=== PATIENT | male | born 1960 | race Caucasian/White ===

== ENCOUNTER 2018-01-02 10:05 | Emergency (ER) | payer MEDICARE, OTHER ==
[~2018-01-02] VITALS: Ht 175.3 cm; Wt 100.0 kg
[2018-01-02 10:10] VITALS: Ht 175.3 cm; Wt 100.0 kg
[2018-01-02] MEDS ORDERED: TENORMIN25 MG PO (10:15)
[2018-01-02] MEDS ORDERED: HYDROCODONE-APA1 TAB PO (10:16)
[2018-01-02] MEDS ORDERED: OXY IR30 MG PO (10:16)
[2018-01-02] MEDS ORDERED: SEROQUEL100 MG PO (10:17)
[2018-01-02] MEDS ORDERED: ZANAFLEX4 MG PO (10:17)
[2018-01-02] MEDS ORDERED: XANAX1 MG PO (10:17)
[2018-01-02 11:06] LABS: BASOPHILS 0.7 % (0-2); EOSINOPHILS 8.4 % (0-7); HEMATOCRIT 51.2 % (42.0-54.0); HEMOGLOBIN 17.2 g/dL (13.5-17.5); IMMATURE GRANULOCYTES 0.3 % (0-5); MCHC 33.6 g/dL (31.0-37.0); MCV 92.3 fL (80.0-100.0); MEAN PLATELET VOLUME 9.3 fL (7.4-10.4); MONOCYTES 5.9 % (2-11); NEUTROPHILS 62.7 % (40-80); PLATELET COUNT 189 10x3/uL (130-400); RBC 5.55 10x6/uL (4.20-6.10); RDW 14.4 % (11.5-14.5); WBC 7.5 10x3/uL (4.8-10.8)
[2018-01-02 11:25] LABS: ALBUMIN 3.6 g/dL (3.4-5.0); ANION GAP 8.5 mmol/L (8-16); BILIRUBIN - TOTAL 0.64 mg/dL (0.2-1.3); CALCIUM 8.8 mg/dL (8.5-10.1); CARBON DIOXIDE 31.4 mmol/L (21.0-32.0); CREATININE - SERUM 1.4 mg/dL (0.6-1.3); POTASSIUM - SERUM 3.9 mmol/L (3.5-5.1); PROTEIN - SERUM 7.2 g/dL (6.4-8.2)
[2018-01-02] MEDS ORDERED: NORVASC5 MG PO (11:59)
[2018-01-02 12:43] VITALS: BP 174/111
[2018-01-29 10:32] VITALS: Ht 175.3 cm; Wt 100.0 kg
== END 2018-01-02 12:42 | disposition home or self-care (01) ==
LOC: D.ER 10:05
PROVIDERS: Family Medicine
DX: I10 Essential (primary) hypertension (principal); G89.29 Other chronic pain

== ENCOUNTER → 2018-01-04 13:22 | Outpatient (CLI) | payer MEDICARE, OTHER ==
[2018-01-02 10:10] VITALS: BMI 32.5
[~2018-01-04 13:22] MED LIST: ASPIRIN EC81 M1 PO; BACTROBAN NASAL1 GM; DIOVAN40 MG PO; ELIQUIS2.5 MG PO; HYDROCODONE-APA1 TAB PO; LIPITOR10 MG PO; LOTRISONE CREAM45 GM TOPICAL; MOVANTIK25 MG PO; NICORETTE4 M1 PO; NORVASC10 MG PO; NORVASC5 MG PO; OXY IR30 MG PO; PERCOCET 10/3251 TA1 PO; PRAVACHOL20 MG PO; PROAIR HFA8.5 GM INH; SEROQUEL100 MG PO; SPIRIVA18 MCG INH; SYMBICORT 16010.2 GM INH; TENORMIN25 MG; TENORMIN25 MG PO; XANAX1 MG PO; ZANAFLEX4 MG PO
[2018-01-29 10:32] VITALS: BMI 32.6
== END | disposition home or self-care (01) ==
LOC: D.LABREF 13:22
DX: M16.11 Unilateral primary osteoarthritis, right hip (principal); Z11.8 Encounter for screening for other infectious and parasitic diseases

== ENCOUNTER 2018-01-23 10:00 | Inpatient (IN) | payer MEDICARE, OTHER ==
[~2018-01-23] VITALS: Ht 175.3 cm; Wt 100.2 kg
--- NOTE | ~2018-01-23 | OP ---
PATIENT NAME: LATOYA AKINS MEDICAL RECORD: [id number] :62 LOCATION:D.MS [facility]2239 ADMISSION DATE:01/28/18 SURGEON: ZANE BRIDGES MD DATE OF OPERATION: 01/28/2018 PREOPERATIVE DIAGNOSIS: Severe degenerative arthritis, right hip. POSTOPERATIVE DIAGNOSIS: Severe degenerative arthritis, right hip. PROCEDURE: Right total hip arthroplasty. SURGEON: Zane Bridges MD ANESTHESIA: General. INTRAOPERATIVE COMPLICATIONS: None. SUMMARY OF PATHOLOGIC FINDINGS: Severe degenerative arthritis of the hip with substantial morphic changes. IMPLANTS USED: Trident X3 polyethylene cup, 36 alpha code E Tritanium hemispherical cluster hole shell, 56 alpha code E Biolox ceramic V40 femoral head, 36-mm outside diameter, -5 Anato, #4 press-fit hip stem. RAILROAD CROSSING PROTECTION MAINTAINER: CARMELINA Perdue OPERATIVE SUMMARY IN DETAIL: After obtaining the appropriate preoperative orthopedic surgery consent as well as anesthetic consultation, evaluation and clearance, the patient was brought to the operating room and placed on the operating table in supine position. After adequate general laryngeal mask airway was administered, the patient was placed in a left lateral decubitus position. All pressure points were well padded to include down leg peroneal pad as well as axillary roll. The patient was held firmly to the operating table using the vacuum pack suction system. Right lower extremity and hip were then prepped and draped in routine sterile fashion. Curvilinear incision was made of the greater trochanter, taken down the level of the IT band and was split in line with the IT band to reveal the inferior aspect of the gluteus medius and minimus, this was reflected anteriorly. The hip capsule was split. This patient had severe erosive arthritis with osteophytes all about the femoral neck as well as circumferentially about the femoral head. Osteophytes were removed with a rongeur. Femoral neck cut was made using the femoral neck cutting guide for the Anato system. Having completed this, attention was turned to the acetabulum. Serial and circumferential labrectomy was then followed by reaming of the acetabulum to a size 55, thus a size 56 mm Press-Fit cup was put in with excellent capture. Polyethylene liner was snapped into place and checked with a Dari. Having completed this, the proximal femur was exposed. Serial and sequential reaming and broaching were done for a size 4. Size 4 Anato stem was put into place. The trial reductions were undertaken. The patient's best fit was with a -5 given the fact that he was so short and so tight, -5 was then tamped with the Hernandez taper and reduced, taken through range of motion and found to be stable in all planes. Intraoperative radiograph showed good position and placement of all components. Having completed this, copious irrigation was followed by reapproximation of gluteus medius and minimus back to the greater trochanter in a transosseous fashion with #5 Ethibond. #2 Ethibond was then used to close the IT band, followed by #1 Vicryl, 2-0 Vicryl and skin osei. OPERATIVE REPORT [id number] LATOYA AKINS Sterile dressings were applied. The patient was awakened and taken to the recovery room in stable condition. All final needle and sponge counts were correct. TRANSINT:[id number] Voice Confirmation ID: [id number] DOCUMENT ID: [id number] CYRUS MAURICIO, ZANE DIAZ at 1516 CC: [id number] DICTATION DATE: 01/28/18 1006 SHIPFITTER HELPER: 01/28/18 1311 ADM IN [facility] [address] [id number]
--- NOTE | ~2018-01-23 | CN ---
PATIENT NAME:LATOYA ARMENDARIZ MEDICAL RECORD: [id number] : 62 LOCATION:D.MS [facility]2239 ADMIT DATE: 01/28/18 ACCOUNT: [id number] CONSULTING PHYSICIAN: BOY NAVAS MD REFERRING PHYSICIAN: ZANE BRIDGES MD DATE OF CONSULTATION: 01/28/2018 Cardiology Consultation DIAGNOSES: 1. Preoperative evaluation of hip surgery. 2. Coronary artery disease. 3. Hypertension. 4. Hyperlipidemia. 5. Chronic obstructive pulmonary disease. 6. Smoking. HISTORY OF PRESENT ILLNESS: Mr. Armendariz presents for hip surgery. He underwent cardiac evaluation at [facility] where he had a cardiac catheterization due to an abnormal ECG. The cardiac catheterization revealed a 70% stenosis of the LAD. He was treated medically. He has been treated medically for this. He is not having any chest pain or chest discomfort compatible with angina. His EKG is with no changes. REVIEW OF SYSTEMS: The patient reports easy bruising but reports no swollen glands. The patient reports no fever, no night sweats, no significant weight gain, no significant weight loss. No significant exercise tolerance. The patient reports no dry eyes, no irritation, no vision change. Patient reports no difficulty hearing and no ear pain. Patient reports no frequent nose bleeds or nose and sinus problems. Patient reports on arm pain on exertion. No shortness of breath while lying down. No history of heart murmur. Patient reports no cough, no wheezing or coughing up blood. Patient reports no abdominal pain, no vomiting. Normal appetite. No diarrhea and not vomiting blood. No nausea and no constipation. Patient reports no incontinence. No difficulty urinating. No hematuria. No increased frequency. Patient reports no muscle aches. No weakness, no arthralgias, no back pain. No swelling of the extremities. Patient reports no abnormal mole, no jaundice, no rashes. Reports no loss of consciousness. No weakness and no numbness. No seizures, dizziness, or headaches. The patient reports no depression, no sleep disturbance, feeling safe in a relationship and no alcohol abuse. Patient reports on fatigue. Reports no runny nose or sinus pressure. No itching, no hives, and no frequent sneezing. PHYSICAL EXAMINATION: GENERAL APPEARANCE: Well-nourished, well-developed, appears stated age. Level of distress, comfortable. PSYCHIATRIC: Mental status, alert, normal affect. Orientation, oriented to time, place and person. EYES: Lids and conjunctiva, noninjected. No discharge, no pallor. ENT: Lips, teeth, gums, normal dentition. Oropharynx, no cyanosis, no pallor. NECK: Carotid arteries, bilateral normal upstroke, no bruits, no thrills. JUGULAR VEINS: No jugular venous pressure or distention. CERVICAL LYMPH NODES: Nontender, nonenlarged. THYROID: Not enlarged. Nontender. No nodules. LUNGS: Respiratory effort, unlabored. CONSULT REPORT [id number] LATOYA ARMENDARIZ CHEST: Normal curvature. No thoracic deformity. No chest wall tenderness. Percussion, resonant. Auscultation, clear. No wheezes, no rales, no rhonchi. CARDIOVASCULAR: Precordial exam, nondisplaced. No heaves or pericardial thrills. Rate and rhythm, regular. Heart sounds, normal S1, normal S2. No S3, no gallop, no rub. Systolic murmur, not heard. Diastolic murmur, not heard. EXTREMITIES: No cyanosis, no edema. Peripheral pulses, full and equal in all extremities, except as noted. No bruits appreciated. ABDOMEN: Soft, nondistended. Normal aorta. No bruit. Nontender. No masses. Liver, nontender, no hepatomegaly. Spleen, nontender, no splenomegaly. MUSCULOSKELETAL: No joint tenderness. No joint swelling. No erythema. NEUROLOGICAL: Normal gait, normal strength, normal tone. SKIN: Warm and dry. OVERALL IMPRESSION: Coronary artery disease, stable, no EKG changes, no anginal symptomatology. Heart rate and blood pressure optimal on his current medications. Proceed with surgery. We will reevaluate coronary artery disease after surgery. TRANSINT:[id number] Voice Confirmation ID: [id number] DOCUMENT ID: [id number] BOY NAVAS MD at 1741 CC: [id number] DICTATION DATE: 01/28/18905 ADVERTISING INTERNSHIP: 01/28/18 1135 DIS IN 01/30/18 [facility] [address] [place] [address]
[~2018-01-23 10:00] MED LIST changes: -ASPIRIN EC81 M1 PO; -BACTROBAN NASAL1 GM; -DIOVAN40 MG PO; -ELIQUIS2.5 MG PO; -LIPITOR10 MG PO; -LOTRISONE CREAM45 GM TOPICAL; -MOVANTIK25 MG PO; -NICORETTE4 M1 PO; -NORVASC10 MG PO; -PERCOCET 10/3251 TA1 PO; -PRAVACHOL20 MG PO; -PROAIR HFA8.5 GM INH; -SPIRIVA18 MCG INH; -SYMBICORT 16010.2 GM INH; -TENORMIN25 MG
[2018-01-23] MEDS ORDERED: PROAIR HFA8.5 GM INH (10:13)
[2018-01-23] MEDS ORDERED: NORVASC10 MG PO (10:14)
[2018-01-23] MEDS ORDERED: ASPIRIN EC81 M1 PO (10:16)
[2018-01-23] MEDS ORDERED: TENORMIN25 MG PO (10:16)
[2018-01-23] MEDS ORDERED: SYMBICORT 16010.2 GM INH (10:17)
[2018-01-23] MEDS ORDERED: LOTRISONE CREAM45 GM TOPICAL (10:17)
[2018-01-23] MEDS ORDERED: MOVANTIK25 MG PO (10:19)
[2018-01-23] MEDS ORDERED: NICORETTE4 M1 PO (10:19)
[2018-01-23] MEDS ORDERED: PRAVACHOL20 MG PO (10:21)
[2018-01-23] MEDS ORDERED: SPIRIVA18 MCG INH (10:22)
[2018-01-23 11:31] LABS: APTT 30.9 SECONDS (22.8-39.4); BASOPHILS 0.3 % (0-2); EOSINOPHILS 4.6 % (0-7); HEMOGLOBIN 17.2 g/dL (13.5-17.5); IMMATURE GRANULOCYTES 0.2 % (0-5); INR 1.02 (0.85-1.17); LYMPHOCYTES 15.3 % (15-50); MCH 31.1 pg (26.0-34.0); MCHC 33.1 g/dL (31.0-37.0); MEAN PLATELET VOLUME 9.2 fL (7.4-10.4); MONOCYTES 8.2 % (2-11); NEUTROPHILS 71.4 % (40-80); PLATELET COUNT 171 10x3/uL (130-400); RBC 5.53 10x6/uL (4.20-6.10); RDW 15.1 % (11.5-14.5); WBC 8.9 10x3/uL (4.8-10.8)
[2018-01-23 11:32] LABS: ANION GAP 12.2 mmol/L (8-16); CALCIUM 9.3 mg/dL (8.5-10.1); CARBON DIOXIDE 30.9 mmol/L (21.0-32.0); CREATININE - SERUM 1.4 mg/dL (0.6-1.3); POTASSIUM - SERUM 4.1 mmol/L (3.5-5.1)
[2018-01-23 11:41] LABS: APPEARANCE HAZY (CLEAR); BILIRUBIN NEGATIVE (NEGATIVE); COLOR DARK YELLOW (YELLOW); GLUCOSE NEGATIVE (NEGATIVE); KETONE NEGATIVE (NEGATIVE); NITRITE NEGATIVE (NEGATIVE); PROTEIN NEGATIVE (NEGATIVE); UROBILINOGEN NORMAL (NORMAL)
[2018-01-28] MEDS ORDERED: TENORMIN25 MG (06:54)
[2018-01-28] MEDS ORDERED: LIPITOR10 MG PO (06:55)
[2018-01-28] MEDS ORDERED: BACTROBAN NASAL1 GM (06:55)
[2018-01-28] MEDS ORDERED: DIOVAN40 MG PO (06:56)
[2018-01-28 06:57] VITALS: BP 113/52; BMI 32.8
[2018-01-28 12:22] VITALS: BP 152/95
[2018-01-28 21:06] VITALS: BP 143/95
[2018-01-29 00:33] VITALS: BP 148/91
[2018-01-29 04:38] VITALS: BP 176/106
[2018-01-29 06:31] LABS: HEMATOCRIT 41.8 % (42.0-54.0); HEMOGLOBIN 13.7 g/dL (13.5-17.5); MCH 30.3 pg (26.0-34.0); MCHC 32.8 g/dL (31.0-37.0); MCV 92.5 fL (80.0-100.0); MEAN PLATELET VOLUME 9.5 fL (7.4-10.4); RBC 4.52 10x6/uL (4.20-6.10); RDW 14.7 % (11.5-14.5); WBC 12.2 10x3/uL (4.8-10.8)
[2018-01-29 08:20] VITALS: BP 117/58
[2018-01-29 10:32] VITALS: Ht 175.3 cm; Wt 100.2 kg
[2018-01-29 13:31] VITALS: BP 92/44
[2018-01-29 15:56] VITALS: BP 99/46
[2018-01-29 21:02] VITALS: BP 101/29
[2018-01-30 04:03] VITALS: BP 124/54
[2018-01-30 06:03] LABS: HEMATOCRIT 34.2 % (42.0-54.0); HEMOGLOBIN 11.1 g/dL (13.5-17.5); MCH 30.1 pg (26.0-34.0); MCHC 32.5 g/dL (31.0-37.0); MCV 92.7 fL (80.0-100.0); MEAN PLATELET VOLUME 9.2 fL (7.4-10.4); RBC 3.69 10x6/uL (4.20-6.10); WBC 9.4 10x3/uL (4.8-10.8)
[2018-01-30 08:33] VITALS: BP 162/101
[2018-01-30] MEDS ORDERED: ELIQUIS2.5 MG PO (09:23)
[2018-01-30] MEDS ORDERED: PERCOCET 10/3251 TA1 PO (09:24)
[2018-01-30 12:01] VITALS: BP 120/72
== END 2018-01-30 12:11 | disposition home or self-care (01) | DRG 470 ==
LOC: D.SDCHOLD 01-28 06:10 → D.MS 01-28 11:17
PROVIDERS: Orthopaedic Surgery
PROC: 0SR90JZ Replacement of Right Hip Joint with Synthetic Substitute, Open Approach (ICD-10-PCS; principal; 2018-01-28 08:30)
DX: M16.11 Unilateral primary osteoarthritis, right hip (principal); M25.751 Osteophyte, right hip; I25.10 Atherosclerotic heart disease of native coronary artery without angina pectoris; I10 Essential (primary) hypertension; E78.5 Hyperlipidemia, unspecified; J44.9 Chronic obstructive pulmonary disease, unspecified; G89.29 Other chronic pain; F17.200 Nicotine dependence, unspecified, uncomplicated

== ENCOUNTER → 2018-02-11 11:47 | Outpatient (CLI) | payer MEDICARE, OTHER ==
[2018-01-29 10:32] VITALS: BMI 32.6
[~2018-02-11 11:47] MED LIST changes: +ASPIRIN EC81 M1 PO; +BACTRIM DS TABL1 TAB PO; +BACTROBAN NASAL1 GM; +DIOVAN40 MG PO; +ELIQUIS2.5 MG PO; +LIPITOR10 MG PO; +LOTRISONE CREAM45 GM TOPICAL; +MOVANTIK25 MG PO; +NICORETTE4 M1 PO; +NORVASC10 MG PO; +PERCOCET 10/3251 TA1 PO; +PRAVACHOL20 MG PO; +PROAIR HFA8.5 GM INH; +SPIRIVA18 MCG INH; +SYMBICORT 16010.2 GM INH; +TENORMIN25 MG; +VIBRAMYCIN 100100 MG PO
== END | disposition home or self-care (01) ==
LOC: D.US 11:47
DX: R60.0 Localized edema (principal)

== ENCOUNTER 2018-03-28 10:48 | Day surgery (SDC) | payer MEDICARE, OTHER ==
[~2018-03-28] VITALS: Ht 180.3 cm; Wt 101.8 kg
--- NOTE | ~2018-03-28 | OP ---
PATIENT NAME: LATOYA AKINS MEDICAL RECORD: [id number] :62 LOCATION:D.MS [facility]2239 ADMISSION DATE: SURGEON: ZANE BRIDGES MD DATE OF OPERATION: 03/28/2018 PREOPERATIVE DIAGNOSIS: Superficial cellulitis of a right hip wound. POSTOPERATIVE DIAGNOSIS: Superficial cellulitis of a right hip wound. PROCEDURES: 1. Excisional debridement to include skin, subcutaneous tissue, portions of fat, fascia and muscle. Aggregate is approximately 120 cm. 2. Application of wound VAC. SURGEON: Zane Bridges MD ANESTHESIA: General. INTRAOPERATIVE COMPLICATIONS: None. SUMMARY OF PATHOLOGIC FINDINGS: The patient did have what appeared to be a serosanguineous hematoma, although infection cannot be ruled out. Cultures were taken at the time of surgery. It did not go beyond the IT band. The IT band was well healed with the sutures in place. OPERATIVE SUMMARY IN DETAIL: After obtaining the appropriate preoperative orthopedic surgery consent as well as anesthetic consultation, evaluation and clearance, the patient was brought to the operating room and placed on the operating table in supine position. After general laryngeal mask airway was administered, the patient was placed in a left lateral decubitus position. All pressure points well padded to include down leg peroneal pad as well as axillary roll. The patient was held firmly to the operating table using the vacuum pack suction system. Right lower extremity and hip were then prepped and draped in a routine sterile fashion. The previously placed osei had already been removed. The areas of bulbar blisters looking tissue were removed. Cultures were taken medially. The patient did have tracking underneath the skin, both superiorly and medially. The entire measurements of the wound were 13 x 3.5 x approximately 2. A combination of curettage, rongeurs as well as scalpel were utilized to remove all nonviable-appearing tissue. Pulsatile lavage irrigation was then followed by placement of a wound VAC. The wound VAC was then placed at a 125 mm of continuous suction on medium intensity. Good seal was achieved. The patient was then awakened, taken to recovery room in stable condition. All final needle and sponge counts were correct. TRANSINT:[id number] Voice Confirmation ID: [id number] DOCUMENT ID: [id number] ZANE BRIDGES MD at 1126 CC: [id number] DICTATION DATE: 03/29/181106 BOX SEALING INSPECTOR: 03/29/18 1123 REG [facility] [address] [facility] [place]
[~2018-03-28 10:48] MED LIST changes: -BACTRIM DS TABL1 TAB PO; -VIBRAMYCIN 100100 MG PO
[2018-03-28 11:14] LABS: BASOPHILS 0.1 % (0-2); EOSINOPHILS 2.7 % (0-7); HEMATOCRIT 45.4 % (42.0-54.0); HEMOGLOBIN 15.4 g/dL (13.5-17.5); IMMATURE GRANULOCYTES 0.1 % (0-5); LYMPHOCYTES 18.8 % (15-50); MCH 31.1 pg (26.0-34.0); MCHC 33.9 g/dL (31.0-37.0); MCV 91.7 fL (80.0-100.0); MEAN PLATELET VOLUME 9.4 fL (7.4-10.4); MONOCYTES 6.9 % (2-11); NEUTROPHILS 71.4 % (40-80); RBC 4.95 10x6/uL (4.20-6.10); RDW 15.3 % (11.5-14.5); WBC 8.1 10x3/uL (4.8-10.8)
[2018-03-28 11:37] LABS: PLATELET COUNT 191 10x3/uL (130-400)
[2018-03-28] MEDS ORDERED: HYDROCODONE-APA1 TAB PO (13:13)
[2018-03-28 13:34] VITALS: BP 137/87; BMI 31.3
[2018-03-28 16:00] VITALS: BP 133/87
[2018-03-28 16:29] VITALS: BP 133/88
[2018-03-28 17:02] VITALS: BP 133/72
[2018-03-28 20:00] VITALS: BP 142/86
[2018-03-28 20:49] VITALS: BP 133/72; Ht 180.3 cm; Wt 101.8 kg
[2018-03-29] VITALS: BP 120/71
[2018-03-29 04:00] VITALS: BP 121/69
[2018-03-29 06:48] LABS: HEMATOCRIT 42.4 % (42.0-54.0); HEMOGLOBIN 14.1 g/dL (13.5-17.5); MCH 30.5 pg (26.0-34.0); MCHC 33.3 g/dL (31.0-37.0); MCV 91.6 fL (80.0-100.0); MEAN PLATELET VOLUME 9.8 fL (7.4-10.4); RBC 4.63 10x6/uL (4.20-6.10); RDW 14.9 % (11.5-14.5); WBC 7.8 10x3/uL (4.8-10.8)
[2018-03-29 08:11] VITALS: BP 135/79
[2018-03-29] MEDS ORDERED: VIBRAMYCIN 100100 MG PO (11:44)
[2018-03-29] MEDS ORDERED: BACTRIM DS TABL1 TAB PO (11:44)
[2018-03-29 12:32] VITALS: BP 128/67
== END 2018-03-29 16:39 | disposition home or self-care (01) ==
LOC: D.MS 10:48 → D.OPS 10:48 → D.PAN 13:30 → D.OPS 13:30 → D.PAN 14:15 → D.MS 15:35 → D.OPS 03-29 16:39
PROVIDERS: Anesthesiology; Orthopaedic Surgery
DX: L03.115 Cellulitis of right lower limb (principal); Z01.812 Encounter for preprocedural laboratory examination

== ENCOUNTER → 2018-09-13 14:28 | Outpatient (CLI) | payer MEDICARE, OTHER ==
[2018-03-28 20:49] VITALS: BMI 31.3
[~2018-09-13 14:28] MED LIST changes: +BACTRIM DS TABL1 TAB PO; +VIBRAMYCIN 100100 MG PO
[2018-09-24 18:08] LABS: FACTOR II DNA ANALYSIS Negative (())
== END | disposition home or self-care (01) ==
LOC: D.LABREF 14:28
PROVIDERS: Internal Medicine Hematology & Oncology
DX: I82.5Z1 Chronic embolism and thrombosis of unspecified deep veins of right distal lower extremity (principal); D68.9 Coagulation defect, unspecified; D68.59 Other primary thrombophilia; R79.9 Abnormal finding of blood chemistry, unspecified

== ENCOUNTER → 2018-09-30 17:30 | Outpatient (CLI) | payer MEDICARE, OTHER ==
[2018-03-28 20:49] VITALS: BMI 31.3
[2018-09-30 18:32] LABS: BASOPHILS 0.4 % (0-2); HEMATOCRIT 41.8 % (42.0-54.0); HEMOGLOBIN 14.2 g/dL (13.5-17.5); IMMATURE GRANULOCYTES 0.3 % (0-5); LYMPHOCYTES 17.7 % (15-50); MCH 30.3 pg (26.0-34.0); MCV 89.3 fL (80.0-100.0); MEAN PLATELET VOLUME 9.5 fL (7.4-10.4); MONOCYTES 6.9 % (2-11); NEUTROPHILS 68.7 % (40-80); RBC 4.68 10x6/uL (4.20-6.10); RDW 15.1 % (11.5-14.5); WBC 7.7 10x3/uL (4.8-10.8)
[2018-09-30 18:35] LABS: PLATELET COUNT 244 10x3/uL (130-400)
[2018-09-30 19:09] LABS: ALBUMIN 3.6 g/dL (3.4-5.0); ANION GAP 17.1 mmol/L (8-16); BILIRUBIN - TOTAL 0.31 mg/dL (0.2-1.3); CALCIUM 8.8 mg/dL (8.5-10.1); CARBON DIOXIDE 26.4 mmol/L (21.0-32.0); CREATININE - SERUM 1.1 mg/dL (0.6-1.3); POTASSIUM - SERUM 4.5 mmol/L (3.5-5.1); PROTEIN - SERUM 7.1 g/dL (6.4-8.2)
[2018-09-30 19:49] LABS: ERYTHROCYTE SEDIMENTATION RATE 25 mm/hr (0-20)
== END | disposition home or self-care (01) ==
LOC: D.LABREF 17:30
PROVIDERS: ATTEND Clinical Nurse Specialist Family Health
DX: M25.551 Pain in right hip (principal)

== ENCOUNTER 2018-10-15 09:18 | Day surgery (SDC) | payer MEDICARE, OTHER ==
[~2018-10-15] VITALS: Ht 175.3 cm; Wt 101.2 kg
[2018-10-15 10:06] LABS: HEMATOCRIT 44.9 % (42.0-54.0); HEMOGLOBIN 14.9 g/dL (13.5-17.5); MCH 29.8 pg (26.0-34.0); MCHC 33.2 g/dL (31.0-37.0); MCV 89.8 fL (80.0-100.0); RDW 15.4 % (11.5-14.5); WBC 6.9 10x3/uL (4.8-10.8)
[2018-10-15 10:34] VITALS: BP 102/69; Ht 175.3 cm; Wt 101.2 kg
--- NOTE | 2018-10-15 13:39 | OP ---
PATIENT NAME: LATOYA AKINS MEDICAL RECORD: [id number] :62 LOCATION:D.OPS ADMISSION DATE: SURGEON: DECLAN AMARO MD DATE OF OPERATION: 10/15/2018 SURGEON: Declan Amaro MD ANESTHESIA: TIVA by Enmanuel Rucker CRNA. DIAGNOSES: Obstructive BPH, history of urinary retention, history of TURP. FINDINGS: Obstructive bilateral lateral lobe. No median lobe due to previous TURP at the bladder neck level. Bilateral single ureteral orifices. Heavily trabeculated bladder with cellules and diverticula. No bladder tumors. PROCEDURE: UroLift times 4 implants. AJ 40 gram prostate. IPSS score is 29 and quality of life score is 5. BLOOD LOSS: Minimal. CLINICAL HISTORY: This is a 58-year-old male, who was referred with obstructive BPH and history of urinary retention. He had a TURP performed 7 years ago and at that time, he was in urinary retention with a postvoid residual of 1.5 liters. He had a right hip replacement by Dr. Chambers and he went into urinary retention afterwards. This was also complicated by a wound infection and a right leg DVT. He was on Eliquis for many months afterwards, but he is no longer on Eliquis. He is now due to have his left hip replaced. Dr. Chambers has referred him to get his BPH treated so that hopefully he will not go into urinary retention after hip replacement surgery. He has a broad flat prostate about 40 grams in size on AJ. IPSS score was quite high at 29 and quality of life score is 5. He is not allergic to any medications. He was given Ancef non cdl driver to the OR. DESCRIPTION OF PROCEDURE: The patient was given IV sedation. He was then placed in the dorsal lithotomy position and prepped and draped. The UroLift scope was introduced. He has a regrowth of his prostate at the apex. However, the bladder neck showed signs of previous resection and significantly there was no median lobe. No bladder tumors were seen in the bladder. We introduced the UroLift device. One implant was placed on each side at the anterior lateral lobe near the bladder neck. The device was implanted about 1.5 cm distal to the bladder neck. This opened up the bladder neck region. We then placed 2 more devices, one on each side at the level of the verumontanum at the anterior lateral urethra. At the end of the procedure, he had a nice open prostatic urethra. The patient was worried about going into urinary retention afterwards and requested a Shepherd catheter be inserted. However, I will leave the catheter out and see if he does go into retention postoperatively. TRANSINT:[id number] Voice Confirmation ID: [id number] DOCUMENT ID: [id number] OPERATIVE REPORT [id number] LATOYA AKINS ROBERT S MD at 1339 CC: [id number] DICTATION DATE: 10/15/18 1306 FIELD HOCKEY AND LACROSSE COACH: 10/15/18 1320 REG [facility] [address] [id number]
== END 2018-10-15 14:45 | disposition home or self-care (01) ==
LOC: D.OPS 09:18
PROVIDERS: Anesthesiology; ATTEND Urology
DX: N40.1 Benign prostatic hyperplasia with lower urinary tract symptoms (principal); N13.8 Other obstructive and reflux uropathy; R33.8 Other retention of urine; Z01.812 Encounter for preprocedural laboratory examination

== ENCOUNTER → 2018-11-01 11:39 | Outpatient (CLI) | payer MEDICARE, OTHER ==
[2018-10-15 10:34] VITALS: BMI 33.0
--- NOTE | ~2018-11-01 | HEMODYNAMI ---
PATIENT:LATOYA AKINS MEDICAL RECORD: [id number] : 62 LOCATION:ELLE ADMISSION DATE: 11/01/18 Generatedon:11/01/201813:31 Patient name: LATOYA AKNIS Patient #: [id number] SSN: : 1960 Date of study: 11/01/2018 Page: Of Hemodynamic Procedure Report Patient Data Patient Demographics Procedure consent was obtained First Name: LATOYA Gender: Male Last Name: TASHI : 1960 Middle Initial: MAREN Age: 58 year(s) Patient #: [id number] Race: Unknown Additional ID: [id number] Contact details Address: [address] [place] [address] State: [facility]: [place] Zip code: [address] Past Medical History Allergies Allergen Reaction Date Comments Reported Other allergy 11/01/2018 Admission Admission Data Admission Date: 11/01/2018 Admission Time: 11:39 Procedure Procedure Types Cath Procedure Peripheral Cath Diagnostic Procedure Miscellaneous Joint Aspiration w/US Procedure Description Procedure Date Procedure Date: 11/01/2018 Procedure Start Time: 13:07 Procedure Staff Name Function Pop Gibbons MD Performing Physician Scar Bella RT Monitor Taylor Pierre RN Nurse Hemodynamics Rest Pre Cath Intra NCS Post Cath Procedure Log Time Note 12:59:41 Scar Bella RT (R) (CV) sent for patient. Start room use. 12:59:53 Patient received from Outpatients to IR Alert and oriented. Tansferred to table in Supine position. 12:59:56 Correct patient and procedure confirmed by team. 12:59:56 Correct patient and procedure confirmed by team. 12:59:58 Signed procedure consent form obtained from patient. 12:59:59 ECG and BP/O2 sat monitors applied to patient. 13:00:01 Full Disclosure recording started 13:00:01 - 13:00:03 Pre-procedure instructions explained to patient. 13:00:03 Pre-op teaching completed and patient verbalized understanding. 13:00:12 Patient allergic to Other allergy 13:00:17 Is patient on blood thinner?No 13:00:29 Right Hip was prepped with betadine and draped in sterile fashion. 13:05:40 Physician arrived 13:05:41 --------ALL STOP TIME OUT------ 13:05:44 Final Timeout: patient, procedure, and site verified with staff and physician. All members of the team are in agreement. 13:05:48 Right groin site verified by team. 13:05:54 Sedation plan: Local Anesthetic Medication:Lidocaine 13:07:11 Procedure started. 13:07:15 Local anesthetic to right hip area with Lidocaine 1% by Pop Gibbons MD.INITIAL ACCESS ONLY 13:29:59 Procedure ended.(Physican Out) 13:30:52 bandaide applied site stable pt sent home Signature Audit [place] Stage Time Signature Unsigned Intra-Procedure 11/01/2018 Scar 1:31:06 PM Shayne RT (R) (CV) Signatures Monitor : Scar Signature : Shayne RT Date : Time : [facility] [address] [place] [address]
== END | disposition home or self-care (01) ==
LOC: D.SP 11:39 → D.RAD 13:00 → D.US 13:00 → D.SP 13:00
PROVIDERS: ATTEND Orthopaedic Surgery
DX: R22.41 Localized swelling, mass and lump, right lower limb (principal); Z01.812 Encounter for preprocedural laboratory examination

== ENCOUNTER → 2018-11-08 12:01 | Outpatient (CLI) | payer MEDICARE, OTHER ==
[2018-10-15 10:34] VITALS: BMI 33.0
[~2018-11-08 12:01] MED LIST changes: +DILAUDID4 MG PO
== END | disposition home or self-care (01) ==
LOC: D.MRI 12:01
PROVIDERS: ATTEND Clinical Nurse Specialist Family Health
DX: R22.41 Localized swelling, mass and lump, right lower limb (principal)

== ENCOUNTER 2018-11-28 11:56 | Day surgery (SDC) | payer MEDICARE, OTHER ==
[~2018-11-28] VITALS: Ht 175.3 cm; Wt 92.1 kg
[~2018-11-28 11:56] MED LIST changes: -DILAUDID4 MG PO
[2018-11-28 12:23] LABS: ANION GAP 12.8 mmol/L (8-16); CALCIUM 9.9 mg/dL (8.5-10.1); CREATININE - SERUM 1.3 mg/dL (0.6-1.3); POTASSIUM - SERUM 4.8 mmol/L (3.5-5.1)
[2018-11-28 12:28] LABS: APTT 27.8 SECONDS (22.8-39.4); INR 1.02 (0.85-1.17); PROTIME 12.9 SECONDS (11.6-15.0)
[2018-11-28 12:40] LABS: BASOPHILS 0.3 % (0-2); EOSINOPHILS 6.6 % (0-7); HEMATOCRIT 40.5 % (42.0-54.0); HEMOGLOBIN 13.8 g/dL (13.5-17.5); IMMATURE GRANULOCYTES 0.2 % (0-5); LYMPHOCYTES 26.8 % (15-50); MCH 30.8 pg (26.0-34.0); MCHC 34.1 g/dL (31.0-37.0); MCV 90.4 fL (80.0-100.0); MEAN PLATELET VOLUME 9.1 fL (7.4-10.4); MONOCYTES 7.6 % (2-11); NEUTROPHILS 58.5 % (40-80); PLATELET COUNT 181 10x3/uL (130-400); RBC 4.48 10x6/uL (4.20-6.10); RDW 15.2 % (11.5-14.5); WBC 6.5 10x3/uL (4.8-10.8)
[2018-11-28 14:34] VITALS: BP 123/81; Ht 175.3 cm; Wt 92.1 kg
[2018-11-28] MEDS ORDERED: DILAUDID4 MG PO (17:11)
--- NOTE | 2018-11-28 19:46 | NUR ---
1825-RECD TO ROOM. ALERT. RESP WITH EASE. R HIP DRESSING DRY AND INTACT. STATES INCISIONAL AREA STINGS BUT TOLERABLE 1829-FULL LIQUIDS SERVED 5-UP TO BATHROOM, VOIDS 5-IV D/C. DISCHARGE INSTRUCTIONS REVIEWED. DRESSED 0-D/C HOME VIA WHEELCHAIR WITH .
--- NOTE | 2018-12-05 12:42 | OP ---
PATIENT NAME: LATOYA ARMENDARIZ MEDICAL RECORD: [id number] :62 LOCATION:D.OPS ADMISSION DATE: SURGEON: ZANE BRIDGES MD DATE OF OPERATION: 11/28/2018 PREOPERATIVE DIAGNOSIS: Right iliotibial band herniation. POSTOPERATIVE DIAGNOSES: Right iliotibial band herniation, plus large hypertrophic trochanteric bursitis. PROCEDURES: 1. Excisional debridement of hypertrophic bursal tissue. 2. Closure of IT band herniation. SURGEON: Zane Bridges MD FREIGHT ELEVATOR OPERATOR: Andrea Cancino INTRAOPERATIVE COMPLICATIONS: None. SUMMARY OF PATHOLOGIC FINDINGS: No evidence of infection was found with this exploration. The area in question was as I suspected a breakdown of the IT band closure with herniation. Mr. Armendariz had substantial problems following his left total hip. We have since discovered that he has a positive coagulopathy workup. OPERATIVE SUMMARY IN DETAIL: After obtaining the appropriate preoperative orthopedic surgery consent as well as anesthetic consultation, evaluation and clearance, the patient was brought to the operating room and placed on the operating table in supine position. After adequate general laryngeal mask airway was administered, the patient was placed in left lateral decubitus position. All pressure points were well padded to include down leg peroneal pad as well as axillary roll. The patient was held firmly to the operating table using the vacuum pack suction system. The right hip was prepped and draped in routine sterile fashion. Incision was made in line with the previous total hip arthroplasty incision, taken down and immediately found was in the layers just above the IT band in and around was both vastus lateralis and the hypertrophic trochanteric bursal synovitis. The hypertrophic bursal synovitis was excised in its entirety and sent for pathology. No purulence was noted at any time. The vastus lateralis was then gently teased off the undersurface of the IT band and then the IT band was closed with #2 Ethibond, followed by #1 Vicryl, 2-0 Vicryl, and skin osei. Final closure was achieved by Andrea Cancino. Sterile dressings were applied. The patient was awakened and taken to recovery room in stable condition. All final needle and sponge counts were correct. TRANSINT:[id number] Voice Confirmation ID: [id number] DOCUMENT ID: [id number] OPERATIVE REPORT [id number] TASHILATOYA MD, ZANE DIAZ at 1242 CC: [id number] DICTATION DATE: 12/04/18 0755 WIND ENERGY ENGINEER: 12/04/18 0822 [facility] 11/28/18 [address] [id number] [place] [address]
== END 2018-11-28 19:40 | disposition home or self-care (01) ==
LOC: D.OPS 11:56 → D.PAN 12:30 → D.OPS 14:45 → D.PAN 16:00 → D.OPS 17:00 → D.PAN 17:00 → D.OPS 19:40 → D.PAN 12-09 17:45 → D.OPS 12-09 17:45
PROVIDERS: Anesthesiology; ATTEND Orthopaedic Surgery
DX: M76.31 Iliotibial band syndrome, right leg (principal); M70.61 Trochanteric bursitis, right hip; Z01.812 Encounter for preprocedural laboratory examination

== ENCOUNTER 2019-10-02 12:40 | Emergency (ER) | payer MEDICARE, OTHER ==
[~2019-10-02] VITALS: Ht 175.3 cm; Wt 91.8 kg
[~2019-10-02 12:40] MED LIST changes: +DILAUDID4 MG PO
[2019-10-02 13:10] VITALS: Ht 175.3 cm; Wt 91.8 kg
[2019-10-02] MEDS ORDERED: CYCLOBENZAPRINE10 MG PO (15:13)
[2019-10-02 15:56] VITALS: BP 142/76
== END 2019-10-02 15:54 | disposition home or self-care (01) ==
LOC: D.ER 12:40
DX: M25.511 Pain in right shoulder (principal); I10 Essential (primary) hypertension; I25.2 Old myocardial infarction; J44.9 Chronic obstructive pulmonary disease, unspecified; W19.XXXA Unspecified fall, initial encounter; Y93.9 Activity, unspecified; Y92.89 Other specified places as the place of occurrence of the external cause

== ENCOUNTER 2019-10-05 18:31 | Emergency (ER) | payer MEDICARE, OTHER ==
[~2019-10-05] VITALS: Ht 175.3 cm; Wt 92.3 kg
[~2019-10-05 18:31] MED LIST changes: +CYCLOBENZAPRINE10 MG PO
[2019-10-05 18:39] VITALS: Ht 175.3 cm; Wt 92.3 kg
[2019-10-05 19:25] LABS: BILIRUBIN NEGATIVE (NEGATIVE); GLUCOSE NEGATIVE (NEGATIVE); KETONE NEGATIVE (NEGATIVE); NITRITE NEGATIVE (NEGATIVE); UROBILINOGEN NORMAL (NORMAL)
[2019-10-05 19:39] LABS: UDS - AMPHET NEGATIVE QUAL (NEGATIVE); UDS - BARB NEGATIVE QUAL (NEGATIVE); UDS - BENZO POSITIVE QUAL (NEGATIVE); UDS - COCAINE NEGATIVE QUAL (NEGATIVE); UDS - OPIATE POSITIVE QUAL (NEGATIVE); UDS - PCP NEGATIVE QUAL (NEGATIVE); UDS - THC NEGATIVE QUAL (NEGATIVE)
[2019-10-05 19:51] LABS: BASOPHILS 0.4 % (0-2); EOSINOPHILS 3.4 % (0-7); HEMATOCRIT 40.9 % (42.0-54.0); HEMOGLOBIN 13.9 g/dL (13.5-17.5); IMMATURE GRANULOCYTES 0.4 % (0-5); LYMPHOCYTES 16.9 % (15-50); MCH 31.9 pg (26.0-34.0); MCV 93.8 fL (80.0-100.0); MEAN PLATELET VOLUME 8.5 fL (7.4-10.4); MONOCYTES 7.1 % (2-11); NEUTROPHILS 71.8 % (40-80); PLATELET COUNT 212 10x3/uL (130-400); RBC 4.36 10x6/uL (4.20-6.10); RDW 12.3 % (11.5-14.5); WBC 5.2 10x3/uL (4.8-10.8)
--- NOTE | 2019-10-05 19:57 | NUR ---
PATIENT IS HERE FOR UNCONTROLLED PAIN TO SHOULDER, HE DOES NOT WANT TO KILL HIMSELF, HIS IS AT BEDSIDE AND HE WANTS VERY MUCH TO LIVE FOR HER AND HIS SON, HE BELIEVES THAT SUICIDE IS IMMORALLY WRONG. AND HE IS ASKING FOR HELP TO CONTROL HIS PAIN FOR NOW. 1-800 NUMBER GIVEN TO PATIENT FOR THE FUTURE TO CALL. AT BEDSIDE
[2019-10-05 20:05] LABS: ANION GAP 11.4 mmol/L (8-16); CALCIUM 9.3 mg/dL (8.5-10.1); CARBON DIOXIDE 29.4 mmol/L (21.0-32.0); CREATININE - SERUM 1.1 mg/dL (0.6-1.3); POTASSIUM - SERUM 3.8 mmol/L (3.5-5.1)
[2019-10-05 20:17] LABS: ALBUMIN 3.3 g/dL (3.4-5.0); BILIRUBIN - TOTAL 0.52 mg/dL (0.2-1.3); MAGNESIUM - SERUM 1.9 mg/dL (1.8-2.4)
[2019-10-05 21:06] VITALS: BP 123/93
== END 2019-10-05 21:07 | disposition home or self-care (01) ==
LOC: D.ER 18:31
PROVIDERS: Emergency Medicine
DX: M25.511 Pain in right shoulder (principal); Z76.5 Malingerer [conscious simulation]; I10 Essential (primary) hypertension; I25.2 Old myocardial infarction; J44.9 Chronic obstructive pulmonary disease, unspecified; I25.10 Atherosclerotic heart disease of native coronary artery without angina pectoris; F32.9 Major depressive disorder, single episode, unspecified; M54.9 Dorsalgia, unspecified

== ENCOUNTER → 2019-10-07 18:11 | Outpatient (CLI) | payer MEDICARE, OTHER | END | disposition home or self-care (01) | LOC: D.LABREF 18:11 | PROVIDERS: ATTEND Orthopaedic Surgery | DX: M19.011 Primary osteoarthritis, right shoulder (principal) ==

== ENCOUNTER 2019-10-13 15:34 | Inpatient (IN) | payer MEDICARE, OTHER ==
[~2019-10-13] VITALS: Ht 175.3 cm; Wt 92.7 kg
[2019-11-27] MEDS ORDERED: DURAGESIC1 PATCH .2 TRANSDERM (08:11)
[2019-11-27] MEDS ORDERED: MUPIROCIN15 GM TOPICAL (08:11)
[2019-11-27] MEDS ORDERED: LOVENOX80 MG/0.8 SC (08:12)
[2019-11-27] MEDS ORDERED: L-METHYLFOLATE7.5 MG PO (08:12)
[2019-11-27] MEDS ORDERED: PERCOCET 10-321 EAC1 PO (08:17)
[2019-11-27 09:51] LABS: BASOPHILS 0.3 % (0-2); EOSINOPHILS 9.6 % (0-7); HEMOGLOBIN 14.9 g/dL (13.5-17.5); IMMATURE GRANULOCYTES 0.2 % (0-5); LYMPHOCYTES 26.8 % (15-50); MCH 31.2 pg (26.0-34.0); MCHC 33.1 g/dL (31.0-37.0); MCV 94.1 fL (80.0-100.0); MEAN PLATELET VOLUME 8.9 fL (7.4-10.4); MONOCYTES 8.1 % (2-11); PLATELET COUNT 202 10x3/uL (130-400); RBC 4.78 10x6/uL (4.20-6.10); RDW 12.4 % (11.5-14.5); WBC 5.8 10x3/uL (4.8-10.8)
[2019-11-27 10:07] LABS: ANION GAP 10.4 mmol/L (8-16); CALCIUM 9.4 mg/dL (8.5-10.1); CARBON DIOXIDE 31.2 mmol/L (21.0-32.0); CREATININE - SERUM 1.2 mg/dL (0.6-1.3); POTASSIUM - SERUM 4.6 mmol/L (3.5-5.1)
[2019-11-27 10:35] LABS: APTT 40.2 SECONDS (22.8-39.4); INR 1.01 (0.85-1.17); PROTIME 13.3 SECONDS (11.6-15.0)
[2019-11-27 10:39] LABS: BILIRUBIN NEGATIVE (NEGATIVE); GLUCOSE NEGATIVE (NEGATIVE); KETONE NEGATIVE (NEGATIVE); NITRITE NEGATIVE (NEGATIVE); UROBILINOGEN NORMAL (NORMAL)
[2019-12-01] VITALS (9 sets, daily range): BP systolic 94–136; BP diastolic 60–84; Ht 175.3 cm; Wt 92.7 kg
--- NOTE | 2019-12-01 11:57 | NUR ---
PLASMA BLADE SET TO 6/8 GROUNDING PAD LEFT FLANK LOT # [id number] 04/21/2021
--- NOTE | 2019-12-01 13:02 | NUR ---
RECEIVED TO ROOM 2211 VIA BED FROM PACU. A/O X3. C/O PAIN TO RIGHT SHOULDER LEVEL 10. WILL INITIATE VIDEO TAPE TRANSFERRER. SKIN INTACT WITHOUT REDNESS. PATIENT REPORTS HISTORY OF THOUGHT OF SUICIDE AND IS UNDER MD CARE FOR SAME. NO THOUGHTS IN LAST 30 DAYS OF SAME.
--- NOTE | 2019-12-01 13:32 | NUR ---
ATE MOST OF REGULAR TRAY. RAIL DOWELING MACHINE OPERATOR INITIATED AT THIS TIME. INSTRUCTED PATIENT IN USE OF SAME. ALSO INSTRUCTED IN USE OF IS WA WITH RETURN DEMONSTRATION.
--- NOTE | 2019-12-01 15:45 | NUR ---
REPORTS GLOBAL IMPLEMENTATION MANAGER NOT EFFECTIVE. REQUESTED AND GIVNE 30MG TORADOL SLOW IVP FOR C/O RIGHT SHOULDER PAIN LEVEL 8. WILL MONITOR.
--- NOTE | 2019-12-01 18:10 | NUR ---
ATE 75% OF SUPPER. DENIES NEEDS. NO CHANGES NOTED. VSS.
--- NOTE | 2019-12-01 19:23 | NUR ---
PATIENT RESTING IN BED AND REQUESTED TO SIT IN THE CHAIR. ASSISTED PATIENT TRANS TO CHAIR WITHOUT DIFFICULTY. PATIENT DENIES OTHER NEEDS AT THIS TIME. VSS. BED IN LOWEST POSITION AND CALL LIGHT WITHIN REACH. ENCOURAGED THE PATIENT TO CALL IF SHE HAS NEEDS. WILL CONTINUE TO MONITOR.
--- NOTE | 2019-12-01 20:10 | NUR ---
PATIENT REQUESTED DR. BRIDGES BE CALLED IN REGARDS TO HOME DOSE OF XANAX BEING REORDERED.
--- NOTE | 2019-12-01 20:12 | NUR ---
PAGED DR. BRIDGES PER PATIENT REQUEST
[2019-12-02 04:51] VITALS: BP 128/91
[2019-12-02 07:03] LABS: HEMATOCRIT 35.4 % (42.0-54.0); HEMOGLOBIN 11.7 g/dL (13.5-17.5); MCH 30.6 pg (26.0-34.0); MCHC 33.1 g/dL (31.0-37.0); MCV 92.7 fL (80.0-100.0); MEAN PLATELET VOLUME 8.7 fL (7.4-10.4); RBC 3.82 10x6/uL (4.20-6.10); RDW 12.8 % (11.5-14.5); WBC 8.2 10x3/uL (4.8-10.8)
[2019-12-02 07:37] VITALS: BP 128/88
--- NOTE | 2019-12-02 08:30 | NUR ---
AWKE AND ALERT. ORIENTED X3. NO C/O AT THIS TIME. LUNGS ARE CLEAR BILATERALLY, NO COUGH NOTED. REPORTS USING IS INSTRUCTED. SKIN IS INTACT WTIHOUT REDNESS EXCEPT INCISION TO RIGHT SHOULDER WHICH HAS A DRY INTACT DRESSING IN PLACE. IV TO LEFT HAND IS PATENT WITHOUT REDNESS AT INSERTION SITE. REPORTS GOOD PAIN MANAGEMENT WITH FURNACE PACKER AND TORADOL. ATE ALL OF BREAKFAST. DENIES NEEDS. VOIDED 450 CC CLEAR YELLOW URINE IN URINAL.
[2019-12-02] MEDS ORDERED: ELIQUIS2.5 MG PO (08:52)
[2019-12-02] MEDS ORDERED: PERCOCET 10-321 EAC1 PO (08:53)
--- NOTE | 2019-12-02 09:30 | NUR ---
TUBE LANCER OFF AT THIS TIME. DENIES NEEDS. NO C/O VOICED.
[2019-12-02 12:11] VITALS: BP 114/63
--- NOTE | 2019-12-02 12:36 | NUR ---
DISCHARGED TO HOME AMBULATORY WITH . DISCHARGE INSTRUCTIONS GIVNE BOTH VERBALLY AND WRITTEN. ALL QUESTIONS ANSWERED. PATIENT VERBALIZED UNDERSTANDING OF SAME. NEEDED PRESCRIPTIONS ESCRIBED TO PHARMACY OF CHOICE. DRESSING CHANGED TO RIGHT SHOULDER. INCISION IS CLEAN DRY AND WELL APPROXIMATED WITH CLIPS INTACT. EXTRA DRESSINGS SENT HOME PER ORDERS. SL TO LEFT HAND D/C WITH CATHETER INTACT. REQUESTED AND GIVEN 30MG TORADOL SLOW IVP FOR PAIN WITH TRAVEL TO HOME. ALL BELONGINGS WITH PATIENT.
--- NOTE | 2019-12-02 13:04 | MORECARE ---
CASE MANAGEMENT DISCHARGE SUMMARY PATIENT: LATOYA ARMENDARIZ UNIT: [id number] ADM DATE: 12/01/19 AGE: 59 : 62 SEX: M ROOM/BED: D.1211 AUTHOR: DES POST PHYSICIAN: REFERRING PHYSICIAN: ZANE BRIDGES MD DATE OF SERVICE: 12/02/19 Discharge Plan Patient Name: LATOYA ARMENDARIZ Facility: [facility]:[place] : 1960 Planned Disposition: Home or Self Care Anticipated Discharge Date: 12/02/19 Discharge Date: 12/02/2019 Expected LOS: 1 Initial Reviewer: [email or web address] Initial Review Date: 12/01/2019 Generated: 12/02/19 2:03 pm Comments DCP- Discharge Planning Updated by [email or web address]: Elena Cochran on 12/02/19 12:[address] CM met with patient to discuss initial discharge planning. Patient is in agreement to proceed with the assessment with present. Patient reports that he lives at home independently with his spouse, Jermain. Emergency Contact: Jermain Armendariz () [phone]. Patient is alert/oriented. Stairs/steps: 2/1. PCP: Giovana Umanzor APRN. Pharmacy: [facility]. Patient states they have been able to obtain all of their prescribed medications PAPER CUTTER OPERATOR. HHS: No. DME: 2 canes, manual W/C. Patient gives permission to speak with family members/care givers. Emergency contact: Jermain Armendariz (). Patient is Independent with all ADL's, medication management PAPER CUTTER OPERATOR. States that his and son will assist with his care. CM discussed the availability of HH, Rehab, DME services. Patient denies the need for additional services at this time and feels safe returning to previous environment. Patient denies being hospitalized within the past 30 days. Patient denies the use of community resources PAPER CUTTER OPERATOR. Transportation at time of discharge: Jermain Armendariz. DCPIA - Discharge Planning Initial Assessment Updated by [email or web address]: Elena Cochran on 12/02/19 1:03 pm * Is the patient Alert and Oriented? Yes * How many steps to enter\exit or inside your home? 2/1 * PCP Dr. Romy Barreto APRN * Pharmacy [facility] * Preadmission Environment Home with Family * ADLs Independent * Equipment Cane Walker * Other Equipment NA * List name and contact numbers for known caregivers / representatives who currently or will assist patient after discharge: Jermain Armendariz [phone] * Verbal permission to speak to the caregivers and representatives has been obtained from the patient. Yes * Community resources currently utilized None * Please name any agencies selected above. NA * Additional services required to return to the preadmission environment? No * Can the patient safely return to the preadmission environment? Yes * Has this patient been hospitalized within the prior 30 days at any hospital? No Patient Name: LATOYA ARMENDARIZ Page [id number] at 1304 All edits/amendments must be made on the electronic document DICTATION DATE: 12/02/19 1304 FILM PROCESS OPERATOR: PRISCILA 12/02/19 1304 RPT#: [id number] DC DATE:12/02/19 STATUS: DIS IN [facility] [address] [place] [address] END OF REPORT
== END 2019-12-02 12:40 | disposition home or self-care (01) | DRG 483 ==
LOC: D.M3 12-01 09:28 → D.SDCHOLD 12-01 09:28 → D.M3 12-01 12:17
PROVIDERS: ADMIT Orthopaedic Surgery; ATTEND Orthopaedic Surgery
PROC: 0RRJ0JZ Replacement of Right Shoulder Joint with Synthetic Substitute, Open Approach (ICD-10-PCS; principal; 2019-12-01 09:30)
DX: M19.011 Primary osteoarthritis, right shoulder (principal)